=== PATIENT | female | born 1985 | race Caucasian/White ===

== ENCOUNTER 2019-06-21 16:35 | Emergency (ER) | payer BC ==
[~2019-06-21] VITALS: Ht 175.3 cm; Wt 72.6 kg
--- NOTE | 2019-06-21 16:39 | NUR ---
PT AMBULATED TO BED 11.
[2019-06-21 16:42] VITALS: BP 135/73
[2019-06-21 16:51] VITALS: BP 135/73
--- NOTE | 2019-06-21 16:51 | NUR ---
PATIENT PRESENTS TO ED WITH LEFT LOWER LEG PAIN SINCE YESTERDAY; PT STATES SHE HAS A BUG BITE SINCE YESTERDAY AND STATES IT DRAINED A LITTLE . PATIENT STATES PAIN OF 10/10 AT THIS TIME; VSS; PATIENT POSITIONED FOR COMFORT; HOB ELEVATED; BEDRAILS UP X2; BED DOWN. ER MD MADE AWARE OF PT STATUS.
[2019-06-21] MEDS ORDERED: KETOROLAC 30 MG/ML VIAL IM ONE (17:30)
[2019-06-21] MEDS ORDERED: DEXAMETHASONE 10 MG/ML VIAL PO ONE (17:30)
[2019-06-21] MEDS ORDERED: cefTRIAXone 500 MG in LIDOCAINE MPF 1% - 5 mL VIAL 1 ML IM ONE (17:30)
--- NOTE | 2019-06-21 17:51 | NUR ---
PT ELOPED FROM FACILITY AND LEFT WITHOUT HER DISCHARGE INSTRUCTIONS. JESUS LYMAN MADE AWARE.
== END 2019-06-21 17:51 | disposition left against medical advice (07) ==
LOC: MED 16:35
DX: L03.116 Cellulitis of left lower limb (principal)
CPT/HCPCS: 81025; 96372; 99283; J0696; J1100; J1885; J2001

== ENCOUNTER 2019-07-09 14:41 | Emergency (ER) | payer BC ==
[~2019-07-09] VITALS: Ht 175.3 cm; Wt 68.0 kg
[2019-07-09 14:47] VITALS: BP 126/78
[2019-07-09 16:10] VITALS: BP 122/72
== END 2019-07-09 16:10 | disposition home or self-care (01) ==
LOC: MED 14:41
DX: S80.862A Insect bite (nonvenomous), left lower leg, initial encounter (principal); S80.861A Insect bite (nonvenomous), right lower leg, initial encounter; S00.86XA Insect bite (nonvenomous) of other part of head, initial encounter; S60.562A Insect bite (nonvenomous) of left hand, initial encounter; S60.561A Insect bite (nonvenomous) of right hand, initial encounter; S50.862A Insect bite (nonvenomous) of left forearm, initial encounter; S50.861A Insect bite (nonvenomous) of right forearm, initial encounter; L03.90 Cellulitis, unspecified; F17.210 Nicotine dependence, cigarettes, uncomplicated; W57.XXXA Bitten or stung by nonvenomous insect and other nonvenomous arthropods, initial encounter; Y93.89 Activity, other specified; Y92.89 Other specified places as the place of occurrence of the external cause; Y99.8 Other external cause status
CPT/HCPCS: 99283

== ENCOUNTER 2019-09-17 19:56 | Emergency (ER) | payer BC ==
[~2019-09-17] VITALS: Ht 175.3 cm; Wt 68.0 kg
[2019-09-17 20:20] VITALS: BP 125/80
--- NOTE | 2019-09-17 20:22 | NUR ---
TO LOBBY A/W BED AMBULATORY
--- NOTE | 2019-09-17 20:56 | NUR ---
PT WAS CALLED AT LOBBY. PT DID NOT ANSWER.
--- NOTE | 2019-09-17 21:09 | NUR ---
PT AMBULATED TO ER CHAIR B
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
--- NOTE | 2019-09-17 21:27 | NUR ---
DR. BULL EVALUATING PT AT THIS TIME.
--- NOTE | 2019-09-17 21:34 | NUR ---
Fei cancino in [facility] - 09/17/19 at 2214 by LEXX PT TAKEN TO BED 8
--- NOTE | 2019-09-17 21:34 | NUR ---
PT MOVED TO BED 8
--- NOTE | 2019-09-17 22:14 | NUR ---
LEYDI BULL AT BEDSIDE DOING US.
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
--- NOTE | 2019-09-17 22:40 | NUR ---
Patient discharged with v/s stable. Written and verbal after care instructions given and explained. Patient alert, oriented and verbalized understanding of instructions. Ambulatory with steady gait. All questions addressed prior to discharge. ID band removed. Patient advised to follow up with PMD. Rx of KEFLEX, BACTRIM, NAPROSYN given. Patient educated on indication of medication including possible reaction and side effects. Opportunity to ask questions provided and answered.
[2019-09-17 22:41] VITALS: BP 128/74
== END 2019-09-17 22:40 | disposition home or self-care (01) ==
LOC: MED 19:56
DX: L03.211 Cellulitis of face (principal); Z98.890 Other specified postprocedural states
CPT/HCPCS: 99284